=== PATIENT | female | born 2000 | race Caucasian/White ===

== ENCOUNTER 2021-04-07 16:40 | Emergency (ER) | payer OTHER, BC ==
[2021-04-07 17:19] VITALS: BP 130/82; PULSE 78; TEMP 98.5; BMI 24.0
[2021-04-07] MEDS ORDERED: ACETAMINOPHEN 500 MG TABLET (FP) PO ONE (17:44)
[2021-04-07] MEDS ORDERED: ACETAMINOPHEN 325 MG TABLET (FP) ONE (17:52)
== END 2021-04-07 18:30 | disposition home or self-care (01) ==
LOC: JERFT 16:40
DX: S60.212A Contusion of left wrist, initial encounter (principal); V47.5XXA Car driver injured in collision with fixed or stationary object in traffic accident, initial encounter
CPT/HCPCS: 71046-TC-FY; 73030-TC-LT-FY; 73110-TC-LT-FY; 73130-TC-LT-FY; 99285-25

== ENCOUNTER 2022-07-05 06:46 | Emergency (ER) | payer BC, OTHER ==
[2022-07-05 06:59] VITALS: BP 138/78; PULSE 98; RESP 18; TEMP 97.8; BMI 25.7
[2022-07-05] MEDS ORDERED: LIDOCAINE 5% TOPICAL PATCH TP ONE (07:35)
[2022-07-05] MEDS ORDERED: IBUPROFEN 600 MG TABLET (FP) PO ONE ×2 (07:35→07:38)
[2022-07-05] MEDS ORDERED: LIDOCAINE 5% TOPICAL PATCH ONE (07:38)
[2022-07-05] MEDS ORDERED: LIDOCAINE PATCH REMOVAL MC SCH (22:00)
== END 2022-07-05 08:59 | disposition home or self-care (01) ==
LOC: FER 06:46
DX: M54.50 Low back pain, unspecified (principal)
CPT/HCPCS: 72100-TC-FY; 81003; 81025; 93005; 99285-25